=== PATIENT | male | born 1965 | race Caucasian/White ===

== ENCOUNTER 2021-03-02 08:57 | Emergency (ER) | payer OTHER ==
[2021-03-02 09:11] VITALS: RESP 18
[2021-03-02] MEDS ORDERED: IBUPROFEN 600 MG TAB PO STA (09:13)
[2021-03-02] MEDS ORDERED: ACETAMINOPHEN TAB 500 MG TAB PO STA (09:13)
--- NOTE | 2021-03-02 09:18 | ED ---
General Adult HPI - General Chief complaint: Shortness of Breath Stated complaint: CHERISE/High BP Time Seen by Provider: 03/02/21 09:00 Source: patient, RN notes reviewed, old records reviewed Mode of arrival: ambulatory Limitations: no limitations - History of Present Illness Initial comments: This is a 55-year-old male who states he started having symptoms of congestion cough and fever a week ago. Patient states on Friday he was tested positive for COVID. Patient states he comes in today because he woke up and he was short of breath and and he states he coughed up much phlegm and then felt much better but he still wanted to be checked out. Patient also wanted a monoclonal antibodies. Patient states now he doesn't feel so short of breath while he's lying in bed. Patient denies any chest pain or palpitations. Patient denies lightheadedness or dizziness. Patient states he has had some congestion. Patient states he did vomit one time today. - Related Data Allergies Allergy/AdvReac Type Severity Reaction Status Date / Time No Known Allergies Allergy Verified 03/02/21 09:12 Review of Systems ROS Statement: Those systems with pertinent positive or pertinent negative responses have been documented in the HPI. ROS Other: All systems not noted in ROS Statement are negative. Past Medical History Past Medical History: No Reported History History of Any Multi-Drug Resistant Organisms: None Reported Past Surgical History: No Surgical Hx Reported Smoking Status: Never smoker Past Alcohol Use History: Rare Past Drug Use History: None Reported General Exam - General Exam Comments Initial Comments: GENERAL: Patient is well-developed and well-nourished. Patient is nontoxic and well- hydrated and is in mild distress. ENT: Neck is soft and supple. No significant lymphadenopathy is noted. Oropharynx is clear. Moist mucous membranes. Neck has full range of motion without eliciting any pain. There is no thyroid enlargement and no masses were felt. EYES: The sclera were anicteric and conjunctiva were pink and moist. Extraocular movements were intact and pupils were equal round and reactive to light. Eyelids were unremarkable. PULMONARY: Unlabored respirations. Good breath sounds bilaterally. No audible rales rhonchi or wheezing was noted. CARDIOVASCULAR: There is a regular rate and rhythm without any murmurs gallops or rubs. ABDOMEN: Soft and nontender with normal bowel sounds. SKIN: Skin is clear with no lesions or rashes and otherwise unremarkable. NEUROLOGIC: Patient is alert and oriented x3. Cranial nerves II through XII are grossly intact. Motor and sensory are also intact. Normal speech, volume and content. Symmetrical smile. MUSCULOSKELETAL: Normal extremities with adequate strength and full range of motion. LYMPHATICS: No significant lymphadenopathy is noted PSYCHIATRIC: Normal psychiatric evaluation. Limitations: no limitations Course Vital Signs 03/02/21 09:03 Temperature 100.5 F H Pulse Rate 99 Respiratory 18 Rate Blood Pressure 159/115 O2 Sat by Pulse 97 Oximetry Medical Decision Making - Medical Decision Making X-ray shows no acute abnormalities Patient will be discharged and he will go upstairs and receive monoclonal antibodies Disposition Clinical Impression: COVID-19 Disposition: HOME SELF-CARE Instructions (If sedation given, give patient instructions): Coronavirus Disease 2019 (COVID-19) Additional Instructions: Patient returns if there is any difficulty breathing Is patient prescribed a controlled substance at d/c from ED?: No Referrals: None,Stated [Primary Care Provider] - 1-2 days Time of Disposition: 09:33
--- NOTE | 2021-03-02 09:27 | XR ---
EXAMINATION TYPE: XR chest 2V DATE OF EXAM: 03/02/2021 COMPARISON: NONE TECHNIQUE: PA and lateral views submitted. HISTORY: Difficulty breathing FINDINGS: The lungs are clear and there is no pneumothorax, pleural effusion, or focal pneumonia. 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 No overt failure. Biapical pleural thickening. IMPRESSION: 1. No acute process.
[2021-03-02] MEDS ORDERED: SODIUM CHLORIDE 0.9% 50 ML IVPB ONE (09:45)
[2021-03-02] MEDS ORDERED: CASIRIVIMAB/IMDEVIMAB (EUA) 1,200 MG in SODIUM CHLORIDE 0.9% 100 ML IVPB ONE (09:45)
[2021-03-02 10:35] VITALS: TEMP 98.8
[2021-03-02 11:00] VITALS: BP 140/97; PULSE 98
== END 2021-03-02 11:52 | disposition home or self-care (01) ==
LOC: EC 08:57
DX: U07.1 COVID-19 (principal)
CPT/HCPCS: 99285 ×2; 71046; M0243; Q0243